=== PATIENT | female | born 1980 | race Caucasian/White ===

== ENCOUNTER → 2023-02-28 | Day surgery (SDC) | payer OTHER ==
[~2023-02-28] VITALS: Ht 172.7 cm; Wt 79.9 kg
[~2023-02-28] MED LIST: ACETAMINOPHEN 1000MG 100ML IV BAG As Ordered ONE; AMPICILLIN SOD/SULBACTAM SOD 3 GM in D5W MINI-BAG PLUS 100 ML IV ONE; CHLORHEXIDINE GLUCONATE 0.12 % 15ML UDC (PERIDEX ORAL RINSE) As Ordered ONE; FAMO20TA PO; LIDOCAINE 2% 100MG/5ML SDV (FOR ANES.) As Ordered ONE; LIDOCAINE 2% W/ EPINEPHRINE 1.7 ML DENTAL INJ As Ordered ONE; LR 1,000 ML IV SCH; METO25TA4 PO; MIDAZOLAM INJ 2MG/2ML VIAL As Ordered ONE; ONDANSETRON 4MG 2ML VIAL IV PRN; ROCURONIUM BROMIDE 50MG/5ML VIAL As Ordered ONE; SUGAMMADEX SODIUM 500 MG/5 ML VIAL (BRIDION) As Ordered ONE; UNRESOLVED CLARIFICATION ENTRY XX SCH; dexmedeTOMIDine (4MCG/ML)200MCG/50ML BTL (PRECEDEX) As Ordered ONE; fentaNYL 100 MCG/2 ML INJECTION As Ordered ONE; oxyCODONE 5MG TAB PO PRN; propofoL 200 MG/20 ML VIAL As Ordered ONE
[2023-02-28] MEDS: fentaNYL 100 MCG/2 ML INJECTION IV PRN ×4 (13:11→13:26)
[2023-02-28 14:50] VITALS: BP 131/79; TEMP 97.2; O2SAT 97
== END | disposition home or self-care (01) ==
LOC: M SDC 07:36
PROVIDERS: ATTEND Dentist
DX: K02.9 Dental caries, unspecified (principal); G47.30 Sleep apnea, unspecified; Z88.0 Allergy status to penicillin
CPT/HCPCS: 88300; C9290; D7210; D7310; J0131; J0295; J1100; J2250; J3010

== ENCOUNTER 2023-06-03 10:47 | Day surgery (SDC) | payer OTHER ==
[~2023-06-03] VITALS: Ht 172.7 cm; Wt 76.2 kg
[~2023-06-03 10:47] MED LIST changes: -ACETAMINOPHEN 1000MG 100ML IV BAG As Ordered ONE; -AMPICILLIN SOD/SULBACTAM SOD 3 GM in D5W MINI-BAG PLUS 100 ML IV ONE; -CHLORHEXIDINE GLUCONATE 0.12 % 15ML UDC (PERIDEX ORAL RINSE) As Ordered ONE; -LIDOCAINE 2% 100MG/5ML SDV (FOR ANES.) As Ordered ONE; -LIDOCAINE 2% W/ EPINEPHRINE 1.7 ML DENTAL INJ As Ordered ONE; -LR 1,000 ML IV SCH; -MIDAZOLAM INJ 2MG/2ML VIAL As Ordered ONE; +NS 1,000 ML IV ONE; -ONDANSETRON 4MG 2ML VIAL IV PRN; -ROCURONIUM BROMIDE 50MG/5ML VIAL As Ordered ONE; -SUGAMMADEX SODIUM 500 MG/5 ML VIAL (BRIDION) As Ordered ONE; -UNRESOLVED CLARIFICATION ENTRY XX SCH; -dexmedeTOMIDine (4MCG/ML)200MCG/50ML BTL (PRECEDEX) As Ordered ONE; -fentaNYL 100 MCG/2 ML INJECTION As Ordered ONE; -oxyCODONE 5MG TAB PO PRN; -propofoL 200 MG/20 ML VIAL As Ordered ONE
[2023-06-03] MEDS ORDERED: fentaNYL 100 MCG/2 ML INJECTION As Ordered ONE (11:46)
[2023-06-03] MEDS ORDERED: LIDOCAINE 2% 100MG/5ML SDV (FOR ANES.) As Ordered ONE (11:47)
[2023-06-03] MEDS ORDERED: propofoL 200 MG/20 ML VIAL As Ordered ONE (11:47)
[2023-06-03 12:18] VITALS: BP 140/85; O2SAT 100
== END 2023-06-03 12:27 | disposition home or self-care (01) ==
LOC: M OPP 10:47
PROVIDERS: ATTEND Internal Medicine Gastroenterology
DX: K31.7 Polyp of stomach and duodenum (principal); R12 Heartburn; G47.30 Sleep apnea, unspecified; Z99.89 Dependence on other enabling machines and devices; Z88.0 Allergy status to penicillin
CPT/HCPCS: 43235; J3010

== ENCOUNTER 2024-04-03 11:11 | Emergency (ER) | payer OTHER ==
[~2024-04-03] VITALS: Ht 172.7 cm; Wt 63.6 kg
[~2024-04-03 11:11] MED LIST changes: -NS 1,000 ML IV ONE
[2024-04-03] MEDS ORDERED: NORT10CA2 (11:29)
[2024-04-03] MEDS ORDERED: MECL-136 (11:29)
[2024-04-03] MEDS: diazePAM 2 MG TAB PO ONE (14:06)
[2024-04-03] MEDS: FAMOTIDINE 20MG/2ML VIAL IVP ONE (17:21)
[2024-04-03] MEDS: ONDANSETRON 4MG 2ML VIAL IV ONE (18:40)
[2024-04-03 19:04] VITALS: TEMP 97.2
[2024-04-03] MEDS: MECLIZINE 25 MG TABLET PO ONE (19:08)
[2024-04-03 19:37] VITALS: BP 144/98; O2SAT 99
== END 2024-04-03 19:45 | disposition short-term general hospital (02) ==
LOC: M ED 11:11 → EDBD 11:11 → M ED 19:45
DX: G93.0 Cerebral cysts (principal); G91.9 Hydrocephalus, unspecified; K21.9 Gastro-esophageal reflux disease without esophagitis; Z88.0 Allergy status to penicillin; Z79.899 Other long term (current) drug therapy
CPT/HCPCS: 70450; 96374; 96375; 99284; J2405; S0028

== ENCOUNTER → 2024-09-07 | Outpatient (CLI) | payer MEDICAID ==
[~2024-09-07] MED LIST changes: +MECL-136; +NORT10CA2; +PROHANCE 279.3MG/ML 15ML VIAL As Ordered ONE
== END ==
LOC: M RAD 16:03
PROVIDERS: ATTEND Neurological Surgery
DX: D43.2 Neoplasm of uncertain behavior of brain, unspecified (principal)
CPT/HCPCS: 70553; A9576